=== PATIENT | female | born 1980 | race Caucasian/White ===

== ENCOUNTER 2017-09-26 19:18 | Emergency (ER) | payer OTHER ==
[~2017-09-26] VITALS: Ht 160 cm; Wt 95.3 kg
[2017-09-26] MEDS ORDERED: INDOMETHACIN50 MG (19:59)
[2017-09-26] MEDS ORDERED: REQUIP1 MG (20:00)
[2017-09-26] MEDS ORDERED: CLONAZEPAM0.5 MG (20:00)
[2017-09-26] MEDS ORDERED: NUPRO (20:00)
== END 2017-09-26 22:25 | disposition home or self-care (01) ==
LOC: ER 19:18
DX: S89.81XA Other specified injuries of right lower leg, initial encounter (principal); M12.561 Traumatic arthropathy, right knee; W18.39XA Other fall on same level, initial encounter; Y93.89 Activity, other specified; Y92.832 Beach as the place of occurrence of the external cause; Y99.8 Other external cause status